=== PATIENT | male | born 1975 | race Caucasian/White ===

== ENCOUNTER 2021-08-28 13:51 | Emergency (ER) | payer OTHER, SELFPAY ==
--- NOTE | 2021-08-28 13:54 | ED.GENADULT ---
HPI - General Adult General Chief complaint: Skin/Abscess/Foreign Body Stated complaint: Rash / frequent urination Time Seen by Provider: 08/28/21 14:28 Source: patient and RN notes reviewed Mode of arrival: ambulatory Limitations: no limitations History of Present Illness HPI narrative: 45-year-old male presents with concern for nausea and diarrhea after returning from [place]. He reports he was flying home on Saturday and began having diarrhea. He denies vomiting. He also reports he has been having chronic back pain for which she has been seeing a chiropractor, it was improving, however after flying home from [place] his back pain has worsened. Reports he occasionally takes Tylenol ibuprofen for back pain. He denies loss of bowel or bladder function, perianal anesthesia. He does report some back pain that radiates to his groin. He denies testicular redness, swelling, tenderness. He reports urine frequency without dysuria, hematuria. He denies flank pain. He also reports a rash on both forearms after returning from [place]. He denies fever, chills, sweats, general malaise. MD complaint: Diarrhea Related Data Allergies Allergy/AdvReac Type Severity Reaction Status Date / Time morphine Allergy Itching Verified 08/28/21 14:12 Review of Systems Review of Systems: CONSTITUTIONAL: Denies malaise, chills, sweats, or fever. ENT: Denies rhinorrhea, congestion, sinus pain, otalgia or sore throat. CARDIOVASCULAR: Denies chest pain, palpitations, or edema. RESPIRATORY: Denies cough or dyspnea. GASTROINTESTINAL: Denies abdominal pain, vomiting, bloody, or mucous stools. Reports diarrhea and nausea GENITOURINARY: Denies dysuria or hematuria. Reports urine frequency MUSCULOSKELETAL: Denies myalgia. Reports low back pain NEUROLOGIC: Denies headache. All systems reviewed & are unremarkable except as noted in HPI and below PMFSH Comments At time of signature, agree with nursing past medical, surgical, social and family history. There is no relevant family history pertinent to the presenting complaint Exam Narrative: GENERAL: Well-appearing, well-nourished, and in no acute distress. HEAD: Normocephalic, atraumatic. EYES: PERRLA, conjunctivae clear, and EOMI. ENT: Nares clear, turbinates pink, no rhinorrhea or epistaxis. Mucous membranes moist. Oropharynx without edema, erythema, or lesions. Tonsils not enlarged and without exudate. NECK: Supple. No lymphadenopathy CHEST: Speaks in full sentences. No respiratory distress. HEART: Regular rate and rhythm. ABDOMEN: Soft, flat, nondistended. No guarding, rebound tenderness, or rigid. No pulsatilla masses. Bowel sounds present in all four quadrants. No organomegaly. Negative Fernandez?s sign. No periumbilical tenderness. No Supra public tenderness or distension. Good femoral pulses bilaterally. No hernia noted. No scars or surface trauma. SKIN: Warm, dry. Scattered scabs noted to bilateral forearms, 4-5 per arm, no other rash noted. MUSC: Range of motion in all 4 extremities grossly normal, gait normal NEURO: Alert and oriented x3. PSYCH: Normal mood and affect Course Course Emergency Course: Patient is aware of diagnosis, understands and agrees to treatment plan. Anticipatory guidance given. Patient agrees to follow-up as directed and is aware of reasons to seek care at the emergency department. Portions of this record may have been created with voice recognition software Level of Care: Express Care Visit Vital Signs Vital signs: Reviewed. Medical Decision Making MDM Narrative Medical decision making narrative: Exam findings show no acute concerns or changes; patient is non-toxic appearing and is in no distress. Patient is appropriate for outpatient treatment and follow-up. Critical Care Time Critical Care Time Critical Care Time: No Discharge Plan Discharge Clinical Impression: Traveler's diarrhea, Nonspecific low back pain Patient Disposition: Home, Self-Care Cond[facility]
[2021-08-28 14:13] VITALS: BP 156/81; PULSE 91; RESP 16; TEMP 36.9; O2SAT 99
== END 2021-08-28 14:44 | disposition home or self-care (01) ==
PROVIDERS: Emergency Provider Nurse Practitioner
DX: A09 Infectious gastroenteritis and colitis, unspecified (principal); M54.50 Low back pain, unspecified
CPT/HCPCS: 81003; 99203; G0463